=== PATIENT | female | born 1950 | race Caucasian/White ===

== ENCOUNTER 2017-01-27 10:41 | Emergency (ER) | payer OTHER ==
[~2017-01-27] VITALS: Ht 144.8 cm; Wt 66.7 kg
[~2017-01-27 10:41] MED LIST: CLONIDINE0.1 PO; COLACE100 MG PO; DEPAKOTE ER500 MG PO; DUONEB 2.5-0.5 M3 ML INH; GABAPENTIN 100100 MG PO; GENTAMICIN 0.1%15 G2 TOP; HURRICAINE MUCOUS MEM; HYDROCODONE-AP1 EAC6 PO; IBUPROFEN 600600 M1 PO; LACTULOSE10 GM/152 PO; LASIX 20 MG TAB20 MG PO; LEVOCETIRIZINE D5 MG PO; LEXAPRO 10 MG T10 M1 PO; LIORESAL 10 MG10 MG PO; LISINOPRIL20 MG PO; MILK OF MA2400 MG/10 PO; OXYBUTYNIN 5 MG5 M2 PO; POTASSIUM20 PO; ROBITUSSIN100 MG/53 PO; SEN-O-TAB8.6 MG PO; SENNA8.6 MG PO; TUMS PO; TYLENOL EXTRA500 MG PO; VERAPAMIL HCL 880 M1 PO; VITAMIN D-32000 UNIT PO; XANAX 0.25 MG0.25 MG PO
[2017-01-27 11:22] LABS: ABSOLUTE NEUTROPHILS 4.5 thou/uL (1.4-8.2); BASOPHILS 0.6 % (0.0-2.0); EOSINOPHILS 2.9 % (0.0-3.0); HEMATOCRIT 37.7 % (37.0-47.0); HEMOGLOBIN 12.3 gm/dL (12.0-15.0); LYMPHOCYTES 22.8 % (24.0-44.0); MANUAL DIFF NO; MCH 29.1 pg (26.0-34.0); MCHC 32.6 g/dL (28.0-37.0); MCV 89.2 fL (80.0-100.0); MONOCYTES 7.6 % (1.0-8.0); PLATELET COUNT 271 thou/uL (150-400); POLYS 66.1 % (36.0-66.0); RBC 4.22 mil/uL (4.20-5.00); RDW 14.4 % (10.5-14.5); WBC 6.8 thou/uL (4.0-11.0)
[2017-01-27 11:29] LABS: CALCIUM 9.1 mg/dL (8.5-10.1); CREATININE 0.7 mg/dL (0.6-1.0); POTASSIUM 4.2 mmol/L (3.5-5.1)
[2017-01-27 11:35] LABS: ALBUMIN 3.4 g/dL (3.4-5.0); TOTAL BILIRUBIN 0.2 mg/dL (<0.1-1.0); TOTAL PROTEIN 7.1 g/dL (6.4-8.2)
[2017-01-27] MEDS ORDERED: TESSALON PERLE100 MG PO (11:46)
[2017-01-27 12:55] VITALS: BP 116/56
== END 2017-01-27 13:37 | disposition home or self-care (01) ==
LOC: ER 10:41
PROVIDERS: Nurse Practitioner
DX: J06.9 Acute upper respiratory infection, unspecified (principal); Z88.6 Allergy status to analgesic agent; Z88.8 Allergy status to other drugs, medicaments and biological substances; Z87.891 Personal history of nicotine dependence

== ENCOUNTER 2017-07-10 07:17 | Inpatient (IN) | payer OTHER ==
[~2017-07-10] VITALS: Ht 144.8 cm; Wt 66.7 kg
--- NOTE | ~2017-07-10 | EKG ---
[place] [address] [facility] [place] [place] [address] ELECTROCARDIOGRAM REPORT Name: TONO HALLMAN Room #: 418-P [facility] [place] .R.#: [id number] Admission: 07/10/17 Attend Phys: Cuate Simpson MD Discharge: Date of : 48 Report #: [id number] THIS REPORT FOR: //name// [facility] ED Test Date: 2017-07-10 Test Time: 07:29:39 Pat Name: TONO HALLMAN Department: Room: Gender: F Fitting Room Operator: AT : 1950 Requested By: Hai Negrete Order Number: [id number] MD: Prieto Shelton Measurements Intervals [place] Rate: 95 P: 71 TN: 157 QRS: -64 QRSD: 101 T: 54 QT: 360 QTc: 453 Interpretive Statements Sinus rhythm LAD, consider left anterior fascicular block Abnormal R-wave progression, late transition No previous ECG available for comparison Electronically Signed On 07-10-2017 16:32:46 CDT by Prieto Shelton [email or web address] <ELECTRONICALLY SIGNED> By: Prieto Shelton MD, [facility] 07/10/17 1632 8 8 Prieto Shelton MD, [facility] /EPI
[~2017-07-10 07:17] MED LIST changes: +TESSALON PERLE100 MG PO
[2017-07-10 07:18] VITALS: BP 153/70
[2017-07-10 07:43] LABS: ABSOLUTE NEUTROPHILS 7.8 thou/uL (1.4-8.2); BASOPHILS 0.3 % (0.0-2.0); EOSINOPHILS 1.2 % (0.0-3.0); HEMATOCRIT 41.4 % (37.0-47.0); HEMOGLOBIN 13.6 gm/dL (12.0-15.0); MCH 28.6 pg (26.0-34.0); MCHC 32.8 g/dL (28.0-37.0); MCV 87.2 fL (80.0-100.0); MONOCYTES 5.9 % (1.0-8.0); PLATELET COUNT 309 thou/uL (150-400); POLYS 80.6 % (36.0-66.0); RBC 4.75 mil/uL (4.20-5.00); WBC 9.7 thou/uL (4.0-11.0)
[2017-07-10 07:50] LABS: CALCIUM 9.4 mg/dL (8.5-10.1); CREATININE 0.8 mg/dL (0.6-1.0); POTASSIUM 3.9 mmol/L (3.5-5.1)
[2017-07-10 07:56] LABS: TOTAL BILIRUBIN 0.4 mg/dL (<0.1-1.0); TOTAL PROTEIN 7.8 g/dL (6.4-8.2)
[2017-07-10 08:28] VITALS: BP 138/71
[2017-07-10 09:09] VITALS: BP 122/73
[2017-07-10 19:24] VITALS: BP 138/76
[2017-07-11 04:05] VITALS: BP 144/69
[2017-07-11 07:33] VITALS: BP 108/77
[2017-07-11 19:35] VITALS: BP 120/65
[2017-07-12 04:51] VITALS: BP 134/69
[2017-07-12 05:57] LABS: HEMATOCRIT 32.8 % (37.0-47.0); MCH 29.1 pg (26.0-34.0); MCHC 33.2 g/dL (28.0-37.0); MCV 87.4 fL (80.0-100.0); RBC 3.75 mil/uL (4.20-5.00); RDW 15.3 % (10.5-14.5)
[2017-07-12 05:59] LABS: HEMOGLOBIN 10.9 gm/dL (12.0-15.0)
[2017-07-12 09:44] VITALS: BP 109/59
[2017-07-12 16:01] VITALS: BP 120/69
[2017-07-12 19:03] VITALS: BP 149/73
[2017-07-13 05:00] VITALS: BP 121/66
[2017-07-13 08:22] VITALS: BP 110/58
[2017-07-13] MEDS ORDERED: LACTULOSE20 GM/30 M PO (13:51)
[2017-07-13] MEDS ORDERED: AUGMENTIN 500-1 EACH PO (13:51)
[2017-07-13] MEDS ORDERED: ABILIFY MAINTE400 M1 IM (13:51)
[2017-07-13 15:20] VITALS: BP 137/71
[2017-07-13 19:00] VITALS: BP 139/75
[2017-07-13 23:59] VITALS: BP 134/76
[2017-07-14 03:45] VITALS: BP 110/63
[2017-07-14 08:00] VITALS: BP 110/63
== END 2017-07-14 14:06 | DRG 195 ==
LOC: ER 07:17 → 4E 08:04 → EROBS 08:04 → 4E 09:20
PROVIDERS: Emergency Medicine; Internal Medicine
DX: J18.9 Pneumonia, unspecified organism (principal); I10 Essential (primary) hypertension; F31.9 Bipolar disorder, unspecified; F41.9 Anxiety disorder, unspecified; M19.90 Unspecified osteoarthritis, unspecified site; H54.7 Unspecified visual loss; R09.02 Hypoxemia; R51 Headache; X58.XXXS Exposure to other specified factors, sequela; R00.0 Tachycardia, unspecified; N32.81 Overactive bladder; Z79.899 Other long term (current) drug therapy; Z86.73 Personal history of transient ischemic attack (TIA), and cerebral infarction without residual deficits; Z88.6 Allergy status to analgesic agent; Z88.8 Allergy status to other drugs, medicaments and biological substances; Z87.891 Personal history of nicotine dependence; S42.202S Unspecified fracture of upper end of left humerus, sequela
CPT/HCPCS: 10183